=== PATIENT | male | born 1970 ===

== ENCOUNTER 2024-06-01 08:52 | Day surgery (SDC) | payer OTHER ==
[~2024-06-01] VITALS: Ht 177.8 cm; Wt 120.6 kg
[~2024-06-01 08:52] MED LIST: NS 500 ML IV ONE
[2024-06-01] MEDS ORDERED: NS 500 ML IV ONE (10:07)
--- NOTE | 2024-06-01 10:07 | NUR ---
06/01/24 Monisha Edmonds 0953: DR POWELL NOTIFIED OF POISON [place] TO OPERATIVE ARM, NO NEW ORDERS GIVEN
[2024-06-01] MEDS ORDERED: Lidocaine HCl/Pf 1% 5 ML VIAL ONE (10:24)
[2024-06-01] MEDS ORDERED: propofoL 20 ML IV ONE ×3 (10:28→10:42)
--- NOTE | 2024-06-01 11:03 | NUR ---
06/01/24 1103 Gisselle Lechuga PT ARRIVES TO SDU MOVING ALL ABOUT IN CART, DIFFICULT TO ORIENT TO UNIT. PT CONTINUOUSLY ROLLING AROUND IN CART & FREQUENT ORIENTATION NEEDED. PT EVENTUALLY AROUSES TO VOICE & IS ABLE TO BE PLACATED. PT NO LONGER MOVING ALL ABOUT IN CART. PT RESTING QUIETLY. PT DENIES PAIN/NAUSEA, ON RA. NO VISIBLE SIGNS OF DISTRESS NOTED.
== END 2024-06-01 11:18 | disposition home or self-care (01) ==
LOC: ORSCSDS 08:52
PROVIDERS: Orthopaedic Surgery
PROC: 01N54ZZ Release Median Nerve, Percutaneous Endoscopic Approach (ICD-10-PCS; principal; 2024-06-01 10:45)
DX: G56.02 Carpal tunnel syndrome, left upper limb (principal); F32.A Depression, unspecified; K21.9 Gastro-esophageal reflux disease without esophagitis; Z98.84 Bariatric surgery status
CPT/HCPCS: J2003; J2704; J7040